=== PATIENT | female | born 1970 | race Caucasian/White ===

== ENCOUNTER 2020-01-15 14:39 | Emergency (ER) | payer OTHER ==
[~2020-01-15] VITALS: Ht 167.6 cm; Wt 54.0 kg
[2020-01-15] MEDS ORDERED: FLONASE 0.05%50 MCG NARES (14:46)
[2020-01-15] MEDS ORDERED: ZESTRIL20 MG PO (14:46)
[2020-01-15] MEDS ORDERED: KLONOPIN1 MG PO (14:47)
[2020-01-15 15:31] LABS: HEMATOCRIT 40.6 % (37.0-47.0); MCH 34.2 pg (26.0-34.0); MCHC 34.5 g/dL (28.0-37.0); RBC 4.1 mil/uL (4.20-5.00); RDW 14.6 % (10.5-14.5); WBC 4.8 thou/uL (4.0-11.0)
[2020-01-15 15:39] LABS: CALCIUM 8.4 mg/dL (8.5-10.1); CREATININE 0.6 mg/dL (0.6-1.0); POTASSIUM 3.4 mmol/L (3.5-5.1)
[2020-01-15 16:24] LABS: AMP/METHAMP POSITIVE (Negative); BARBITURATES Negative (Negative); BENZODIAZEPINES Negative (Negative); COCAINE Negative (Negative); METHADONE Negative (Negative); OPIATES Negative (Negative); PCP Negative (Negative)
[2020-01-15 17:35] VITALS: BP 120/68
== END 2020-01-15 17:35 | disposition home or self-care (01) ==
LOC: ER 14:39
PROVIDERS: Nurse Practitioner Family
DX: S61.212A Laceration without foreign body of right middle finger without damage to nail, initial encounter (principal); F10.129 Alcohol abuse with intoxication, unspecified; F15.10 Other stimulant abuse, uncomplicated; R22.32 Localized swelling, mass and lump, left upper limb; Z87.891 Personal history of nicotine dependence; Z79.899 Other long term (current) drug therapy; Y04.0XXA Assault by unarmed brawl or fight, initial encounter; Y93.89 Activity, other specified; Y92.89 Other specified places as the place of occurrence of the external cause; Y99.9 Unspecified external cause status; Y90.9 Presence of alcohol in blood, level not specified

== ENCOUNTER 2021-04-27 08:52 | Emergency (ER) | payer OTHER ==
[~2021-04-27] VITALS: Ht 167.6 cm; Wt 68.0 kg
--- NOTE | ~2021-04-27 | EMS ---
[address] [address] EMS Patient Care Report Name: HERMANN ALEX Room #: DEP KELLI Dexter#: [id number] Admission: 04/27/21 Attend Phys: Discharge: 04/27/21 Date of : 70 Report #: [id number] THIS REPORT FOR: //name// Report Transmitted: 04/28/2021 09:51 EMS Care Summary [place], [place]/[facility] Incident [id number] @ 04/27/2021 08:25 Incident Location [address] [place] [address] Patient HERMANN ALEX Female, 50 Years 1970 Patient Address [address] [place] [address] Patient History Hypertension (HTN),Alcohol Abuse, Patient Allergies No known allergies, Patient Medications Clonazepam, Lisinopril, Gabapentin, Chief Complaint NAUSEA AND VOMMITING DUE TO ALCOHOL WITHDRAWAL Disposition Transported No Lights/[place] Dispatch Reason Sick Person Transported To [facility] Narrative M36 ARRIVED ON SCENE TO FIND A 50 YEAR OLD FEMALE STANDING IN GARAGE. PATIENT STATED SHE WAS ALCOHOLIC AND SUFFERING FROM ALCOHOL WITHDRAWAL. PER PATIENT "SHE DRINKS ABOUT A 1/5 OF LIQUOR A DAY", AND HAD HER LAST DRINK "EARLY THIS [facility] [address] [place] [address] EMS Patient Care Report Name: HERMANN ALEX Room #: DEP ER Isacc#: [id number] Admission: 04/27/21 Attend Phys: Discharge: 04/27/21 Date of : 70 Report #: [id number] MORNING. PATIENT STATED ONLY COMPLAINTS ARE FEELING NAUSOUS AND VOMMITING FROM DETOXING FROM ALCOHOL. PATIENT WAS AMBULATORY AND WALKED OF HER OWN POWER TO THE AMBULANCE. ONCE IN THE AMBULANCE PATIENT SAT ON BENCH SEAT AND WAS SECURED TO BENCH SEAT WITH SAFETY BELTS. EN ROUTE TO FACILITY A FULL SET OF VITALS WERE TAKEN THAT WERE STABLE AND WITHIN NORMAL RANGES. PATIENT STATED SHE ALSO HAD BACK PAIN BUT THAT IT WAS "CHRONIC PAIN THAT SHE EXPERINCES ALL THE TIME" AND THAT THE PAIN WAS NORMAL FOR HER AND NOT CAUSING ANY UNUSUAL DISCOMFORT. ARRIVING AT HOSPITAL PATIENT WAS AMBULATORY AND WALKED OUT OF AMBULANCE OF HER OWN POWER AND FOLLOWED EMS [facility] INTO HOSPITAL EMERGENCY ROOM. ONCE IN THE EMERGENCY ROOM PATIENT WALKED AND FOLLWED [facility] INTO HOSPITAL ROOM AND SAT ON HOSPITAL BED. PATIENT WAS SECURED TO BED WITH SIDE SAFETY RAILS AND CARE WAS TRANSFERRED OVER TO RECEIVING MEDICAL STAFF WITH A FULL REPORT GIVEN TO MEDICAL STAFF BY [facility]. M36 WENT BACK INTO SERVICE AT 08:59 HOURS. Initial Vitals @08:43P: 120,R: 18,BP: 146/53,Pain: 0/10,GCS: 15,CO: 2,SpO2: 98,Revised Trauma: 12, @08:36P: 132,R: 18,BP: 118/77,Pain: 0/10,GCS: 15,SpO2: 99,Revised Trauma: 12, Assessments @08:47MENTAL:Place Oriented,Person Oriented,Time Oriented,Event Oriented,SKIN:HEENT:Head/Face: No Abnormalities,LUNG SOUNDS:General: No Abnormalities,ABDOMEN:General: No Abnormalities,PELVIS//GI:No Abnormalities,EXTREMITIES:Left Arm: No Abnormalities,Right Arm: No Abnormalities,Left Leg: No Abnormalities,Right Leg: No Abnormalities,PULSE:Radial: 2+ Normal,NEURO:No Abnormalities, Impression Alcohol dependence with withdrawal Procedures @08:46ALS AssessmentResponse: UnchangedSucceeded@08:47BLS AssessmentResponse: Unchanged Timeline 08:23,Call Received 08:23,Dispatch Notified 08:25,Dispatched 08:25,En Route 08:34,On Scene 08:36,At Patient 08:36,BP: 118/77 M,PULSE: 132,RR: 18 R,SPO2: 99 Ox,ETCO2: ,BG: ,PAIN: 0,GCS: 15, 08:40,Depart Scene 08:43,BP: 146/53 M,PULSE: 120,RR: 18 R,SPO2: 98 Ox,ETCO2: ,BG: ,PAIN: 0,GCS: 15, [address] [address] EMS Patient Care Report Name: HERMANN ALEX Room #: DEP KELLI Dexter#: [id number] Admission: 04/27/21 Attend Phys: Discharge: 04/27/21 Date of : 70 Report #: [id number] 08:46,ALS Assessment,Response: UnchangedSucceeded, 08:47,BLS Assessment,Response: Unchanged 08:49,At Destination 08:59,Call Closed Disclaimer [email or web address] Copyright 2020 [employer] This EMS Care Summary contains data elements from the applicable legal record (which may be displayed differently). It is designed to provide pertinent information for the following purposes: continuity of care, clinical quality, and state data reporting. The complete legal record is available to ED staff and administrators of the receiving hospital in [employer]'s Patient Tracker. All data is provided "as is."
[~2021-04-27 08:52] MED LIST: FLONASE 0.05%50 MCG NARES; KLONOPIN1 MG PO; ZESTRIL20 MG PO
[2021-04-27] MEDS ORDERED: NALTREXONE HCL50 MG PO (09:02)
[2021-04-27] MEDS ORDERED: NEURONTIN 300M300 M2 PO (09:03)
[2021-04-27] MEDS ORDERED: PRINIVIL20 MG PO (09:03)
[2021-04-27 09:20] LABS: BASOPHILS 1.1 % (0.0-2.0); EOSINOPHILS 1.7 % (0.0-3.0); HEMOGLOBIN 14.5 gm/dL (12.0-15.0); MCH 29.6 pg (26.0-34.0); MCHC 34.6 g/dL (28.0-37.0); MCV 85.5 fL (80.0-100.0); MONOCYTES 5.6 % (1.0-8.0); PLATELET COUNT 140 thou/uL (150-400); POLYS 68.6 % (36.0-66.0); RBC 4.91 mil/uL (4.20-5.00); RDW 14.5 % (10.5-14.5); WBC 7.2 thou/uL (4.0-11.0)
[2021-04-27 09:30] LABS: CREATININE 0.7 mg/dL (0.6-1.0); POTASSIUM 3.6 mmol/L (3.5-5.1)
[2021-04-27] MEDS ORDERED: ZOFRAN ODT4 MG PO (09:47)
[2021-04-27 10:22] VITALS: BP 105/65
== END 2021-04-27 10:23 | disposition home or self-care (01) ==
LOC: ER 08:52
PROVIDERS: Emergency Medicine
DX: F10.10 Alcohol abuse, uncomplicated (principal); I10 Essential (primary) hypertension; Z79.899 Other long term (current) drug therapy; Z87.891 Personal history of nicotine dependence